=== PATIENT | male | born 1990 | race Caucasian/White ===

== ENCOUNTER 2017-09-15 10:33 | Emergency (ER) | payer SELFPAY ==
[2017-09-15] MEDS: BELLADONNA/PHENOBARBITAL TAB PO (12:10)
[2017-09-15] MEDS: LIDOCAINE/MYLANTA 40 ML BTL PO (12:10)
[2017-09-15 12:36] LABS: ADD MAN DIFF? NO
[2017-09-15 12:39] LABS: BASOPHILS % 0.5 % (0.0-2.0); EOSINOPHILS # 0.2 10^3/ul (0.0-0.5); EOSINOPHILS % 3.4 % (0.0-7.0); HEMATOCRIT 44.5 % (42.0-52.0); HEMOGLOBIN 15.4 g/dl (14.0-18.0); LYMPHOCYTES # 1.8 10^3/ul (0.8-2.9); LYMPHOCYTES % 32.1 % (15.0-51.0); MEAN CORPUSCULAR HEMOGLOBIN 32.4 pg (29.0-33.0); MEAN CORPUSCULAR HGB CONC 34.6 g/dl (32.0-37.0); MEAN CORPUSCULAR VOLUME 93.7 fl (82.0-101.0); MEAN PLATELET VOLUME 9.7 fl (7.4-10.4); MONOCYTE # 0.5 10^3/ul (0.3-0.9); MONOCYTES % 9.5 % (0.0-11.0); NEUTROPHILS % 54.1 % (39.0-77.0); PLATELET COUNT 256 10^3/UL (140-415); RED BLOOD COUNT 4.75 10^6/ul (4.70-6.10)
[2017-09-15 12:39] LABS: WHITE BLOOD COUNT 5.6 10^3/ul (4.8-10.8)
[2017-09-15 12:44] LABS: ADD UMIC YES; UR ASCORBIC ACID NEGATIVE (NEGATIVE); UR BILIRUBIN (Dip) NEGATIVE (NEGATIVE); UR BLOOD (Dip) NEGATIVE (NEGATIVE); UR CLARITY TURBID (CLEAR); UR COLOR YELLOW (YELLOW); UR GLUCOSE (Dip) NEGATIVE (NEGATIVE); UR KETONES (Dip) NEGATIVE (NEGATIVE); UR LEUKOCYTE ESTERASE (Dip) NEGATIVE Leu/ul (NEGATIVE); UR NITRITE (Dip) NEGATIVE (NEGATIVE); UR RBC 0 /HPF (0-5); UR SPECIFIC GRAVITY (Dip) 1.014 (1.003-1.030); UR TOTAL PROTEIN (Dip) NEGATIVE (NEGATIVE); UR UROBILINOGEN (Dip) NEGATIVE (NEGATIVE); UR WBC 21 /HPF (0-5)
[2017-09-15 12:58] LABS: ALANINE AMINOTRANSFERASE 67 IU/L (13-69); ALBUMIN 4.3 g/dl (3.3-4.9); ALKALINE PHOSPHATASE 93 IU/L (42-121); ANION GAP 13 (8-16); ASPARTATE AMINO TRANSFERASE 39 IU/L (15-46); BILIRUBIN,INDIRECT 0.5 mg/dl (0-1.1); BILIRUBIN,TOTAL 0.5 mg/dl (0.2-1.3); BLOOD UREA NITROGEN 13 mg/dl (7-20); CALCIUM 9.4 mg/dl (8.4-10.2); CARBON DIOXIDE 30 mmol/L (21-31); CHLORIDE 106 mmol/L (97-110); CREATININE 0.98 mg/dl (0.61-1.24); GLUCOSE 94 mg/dl (70-220); LIPASE 41 U/L (23-300); POTASSIUM 4.1 mmol/L (3.5-5.1); SODIUM 145 mmol/L (135-144); TOTAL PROTEIN 7.6 g/dl (6.1-8.1)
[2017-09-15 13:11] LABS: TROPONIN-I < 0.012 ng/ml (0.00-0.12)
== END 2017-09-15 14:04 | disposition home or self-care (01) ==
LOC: FTE 10:33
DX: R10.13 Epigastric pain (principal)
CPT/HCPCS: 36415; 71045; 76705; 80053; 81001; 83690; 84484; 85025; 93005; 99285-25

== ENCOUNTER 2018-08-07 15:57 | Emergency (ER) | payer SELFPAY | END 2018-08-07 20:33 | disposition home or self-care (01) | LOC: FTE 15:57 | DX: J06.9 Acute upper respiratory infection, unspecified (principal); J02.9 Acute pharyngitis, unspecified | CPT/HCPCS: 99282 ==

== ENCOUNTER 2018-08-18 12:18 | Emergency (ER) | payer SELFPAY ==
[2018-08-18] MEDS: KETOROLAC 30 MG INJ IM (16:21)
[2018-08-18] MEDS: METHOCARBAMOL 750 MG TAB PO (16:21)
== END 2018-08-18 18:35 | disposition home or self-care (01) ==
LOC: FTE 12:18
DX: M54.6 Pain in thoracic spine (principal)
CPT/HCPCS: 96372; 99284-25